=== PATIENT | female | born 1985 | race Caucasian/White ===

== ENCOUNTER 2017-03-19 22:31 | Emergency (ER) | payer OTHER ==
[~2017-03-19] VITALS: Ht 165.1 cm; Wt 83.0 kg
[2017-03-19] MEDS ORDERED: NKM (22:42)
[2017-03-19 22:51] VITALS: BP 120/76
[2017-03-19] MEDS ORDERED: cefTRIAXone 1 GM in NS 55 ML IVPB ONE (23:00)
[2017-03-19] MEDS ORDERED: Ketorolac 30mg Inj IV ONE (23:00)
[2017-03-19 23:18] LABS: KETONES,URINE NEGATIVE (NEGATIVE); LEUKOCYTE ESTERASE ,URINE 3+ (NEGATIVE); NITRITE,URINE POSITIVE (NEGATIVE); PH,URINE 6 (4.5-8.0); PROTEIN,URINE 4+ (NEGATIVE); UROBILINOGEN,URINE 4 MG/DL (0.0-1.0)
[2017-03-19 23:32] LABS: APPEARANCE,URINE CLOUDY
[2017-03-19 23:33] LABS: BACTERIA,URINE MODERATE /HPF; ICTOTEST POSITIVE; RBC,URINE 20-30 /HPF (0 - 2); SQUAMOUS EPITHELIAL CELL,UR FEW /LPF (NONE/OCC); WBC,URINE TNTC /HPF (0 - 2)
[2017-03-19] MEDS ORDERED: KEFLEX500 MG ORAL (23:57)
[2017-03-19] MEDS ORDERED: HYDROCODON-ACE1 EA15 ORAL (23:57)
--- NOTE | 2017-03-19 23:58 | Emergency Room Report ---
History of Present Illness General Chief Complaint: Back Pain-No Injury Source: Patient Present Illness HPI Is a 31-year-old female with a history of frequent urinary tract infection. Last infection was about 8 months ago. Patient presents with chief complaint of dysuria frequency and left flank pain. No fever chills but no nausea vomiting. Onset last night. Denies any other complaint. Pain is 8/10. Worse with movement. Similar symptom in the past. Allergies: Coded Allergies: No Known Allergies (Unverified , 03/19/17) Patient History Past Medical History: see triage record, old chart reviewed Past Surgical History: none Pertinent Family History: none Social History: Denies: smoking Last Menstrual Period: N/A Now: No - IUD Immunizations: other Reviewed Nursing Documentation: PMH: Agreed, PSxH: Agreed Nursing Documentation-PMH Past Medical History: No History, Except For Review of Systems Eye: Denies: blurred vision, eye pain ENT: Denies: ear pain, nose congestion, throat swelling Respiratory: Denies: cough, shortness of breath Cardiovascular: Denies: chest pain, palpitations Gastrointestinal: Denies: abdominal pain, diarrhea, nausea, vomiting Genitourinary: Reports: dysuria, frequency, urgency Musculoskeletal: Denies: back pain, joint pain Skin: Denies: rash Neurological: Denies: headache, numbness Endocrine: Denies: increased thirst, increased urine Hematologic/Lymphatic: Denies: easy bruising All Other Systems: negative except mentioned in HPI Physical Exam Vital Signs Date Time Temp Pulse Resp B/P Pulse Ox O2 Delivery O2 Flow Rate FiO2 03/19/17 22:38 98.1 78 20 125/78 95 Room Air vitals normal Sp02 EP Interpretation: reviewed, normal General Appearance: well appearing, no apparent distress, alert Head: normocephalic, atraumatic Eyes: bilateral eye EOMI, bilateral eye PERRL ENT: hearing grossly normal, normal pharynx Neck: full range of motion, supple, no meningismus Respiratory: chest non-tender, lungs clear, normal breath sounds Cardiovascular #1: regular rate, rhythm, no murmur Gastrointestinal: normal bowel sounds, non tender, no mass, no organomegaly, no bruit, non-distended Genitourinary: CVA tenderness (L) - Mild Musculoskeletal: back normal, gait/station normal, normal range of motion Neurologic: alert, oriented x3 Psychiatric: mood/affect normal Skin: warm/dry Medical Decision Making Diagnostic Impression: Primary Impression: Pyelonephritis ER Course Patient presents with a descending UTI versus early pyelonephritis. Urine is positive. Rocephin given here. Patient felt better. We'll discharge home. No evidence of sepsis. Patient tolerating by mouth. Last Vital Signs Date Time Temp Pulse Resp B/P Pulse Ox O2 Delivery O2 Flow Rate FiO2 03/19/17 22:51 98.2 74 19 120/76 99 Room Air Status: improved Disposition: HOME, SELF-CARE Condition: Stable Scripts Cephalexin* (KEFLEX*) 500 Mg Capsule 500 MG ORAL TID, #30 CAP 0 Refills Prov: SHEILA SHIELDS M.D. 03/19/17 Hydrocodone/Acetaminophen 5-325* (HYDROCODONE/ACETAMINOPHEN 5-325*) 1 Each Tablet 1 TAB ORAL Q6H Y for For Pain, #10 TAB 0 Refills Prov: SHEILA SHIELDS M.D. 03/19/17 Referrals: NOT CHOSEN [facility]/,REFERRING (PCP) Additional Instructions: Followup with your DrSherie in 2-3 days for recheck. Return for fever, chills, nausea or vomiting. Return if symptom worsen. SHEILA SHIELDS M.D. Mar 19, 2017 23:58
[2017-03-20 00:05] VITALS: BP 125/74
[2017-03-20 00:10] VITALS: BP 125/74
== END 2017-03-20 00:10 | disposition home or self-care (01) ==
LOC: EMR 22:53
DX: N12 Tubulo-interstitial nephritis, not specified as acute or chronic (principal)
CPT/HCPCS: 81003; 81025; 87086; 87181; 96365; 96374; 96375; 99284; J0696; J1885